=== PATIENT | male | born 1990 | race African-American/Black ===

== ENCOUNTER 2017-01-08 23:34 | Emergency (ER) | payer SELFPAY ==
--- NOTE | ~2017-01-08 | EKG ---
PATIENT: JANEY LENTZ UNIT #: [id number] Ventricular Rate: 57 BPM Atrial Rate: 57 BPM P-R Interval: 182 ms QRS Duration: 94 ms Q-T Interval: 422 ms QTC Calculation(Bezet): 410 ms P Garwood: 71 degrees Calculated R Garwood: 78 degrees Calculated T Garwood: 57 degrees Diagnosis Line: Sinus bradycardia with Premature atrial complexes Diagnosis Line: Early repolarization Diagnosis Line: Otherwise normal ECG Diagnosis Line: No previous ECGs available Diagnosis Line: Confirmed by MELINDA CARRION MD ([id number]) on Diagnosis Line: 01/09/2017 2:49:00 PM INTERPRETING MD: MURALI URENA
[~2017-01-08 23:34] MED LIST: ZOFRAN ODT4 MG PO
[2017-01-08] MEDS ORDERED: ONE DAILY MULT1 EAC2 (23:45)
[2017-01-09 00:41] LABS: URINE SOURCE CLEAN CATCH
[2017-01-09 00:44] LABS: URINE APPEARANCE CLEAR; URINE BILIRUBIN NEG (NEG); URINE BLOOD NEG (NEG); URINE COLOR YELLOW; URINE GLUCOSE NEG (NORM); URINE KETONE TRACE (NEG); URINE LEUKOCYTE ESTERASE NEG (NEG); URINE NITRATE NEG (NEG); URINE PROTEIN 1+ (NEG); URINE SPECIFIC GRAVITY 1.025 (1.003-1.035)
[2017-01-09 00:45] LABS: MICRO INDICATED? NO
[2017-01-09 00:47] LABS: BASOPHIL# 0.1 X10e3 (0-0.3); BASOPHIL% 1.4 % (0-2.5); EOSINOPHIL# 0.1 X10e3 (0-0.7); EOSINOPHIL% 1.2 % (0.0-7.0); HEMATOCRIT 42.1 % (38.0-50.0); HEMOGLOBIN 13.7 gm/dL (13.0-16.0); LYMPHOCYTE# 1.1 X10e3 (1.0-3.5); LYMPHOCYTE% 15.6 % (17.0-45.0); MEAN CELL VOLUME 79.7 FL (83-96); MEAN CORPUSCULAR HGB CONC 32.6 g/dL (30-36); MEAN PLATELET VOLUME 8.6 FL (6.5-11.5); MONOCYTE# 0.7 X10e3 (0-1.0); MONOCYTE% 8.9 % (3.0-12.0); NEUTROPHIL# 5.3 X10e3 (1.5-7.1); NEUTROPHIL% 72.9 % (40-75); PLATELET COUNT 234 X10e3 (140-420); RED BLOOD COUNT 5.28 X10e (3.90-5.60); RED CELL DISTRIBUTION WIDTH 14.9 % (11.0-15.5); WHITE BLOOD COUNT 7.3 X10e3 (4.0-10.5)
[2017-01-09 00:50] LABS: DIFF IND NO
[2017-01-09 00:56] LABS: AMPHETAMINE NEG (NEG); BARBITURATES NEG (NEG); BENZODIAZEPINES NEG (NEG); COCAINE NEG (NEG); MARIJUANA NEG (NEG); OPIATES NEG (NEG); TRICYCLIC ANTIDEPRESSANTS NEG (NEG); U METHADONE NEG (NEG)
[2017-01-09 01:00] LABS: CALCIUM SERUM 9.4 mg/dL (8.4-10.2); CREATININE SERUM 1.1 mg/dL (0.6-1.4); GLOM FILT RATE Estimated 107.6 mL/min (>60); POTASSIUM 3.8 mmol/L (3.5-5.1)
== END 2017-01-09 01:35 | disposition home or self-care (01) ==
LOC: SED 23:34
PROVIDERS: Emergency Medicine
DX: R55 Syncope and collapse (principal)
CPT/HCPCS: 36415; 80048; 80307; 81003; 85025; 93005; 99284